=== PATIENT | female | born 1950 | race Hispanic/Latino ===

== ENCOUNTER 2023-11-09 08:47 | Emergency (ER) | payer MEDICARE ==
[~2023-11-09] VITALS: Ht 149.9 cm; Wt 65.5 kg
[2023-11-09] MEDS ORDERED: BENZONATATE200 MG PO (10:00)
[2023-11-09] MEDS ORDERED: AUGMENTIN 500-1 EACH PO (10:00)
[2023-11-09] MEDS: DEXAMETHASONE SOD PHOS INJ 4 MG/ML SDV IM ONE (10:02)
[2023-11-09] MEDS ORDERED: DEXAMETHASONE SOD PHOS INJ 4 MG/ML SDV ONE ×2 (10:03→10:07)
[2023-11-09] MEDS: CEFTRIAXONE 1 GM VIAL IM ONE (10:03)
[2023-11-09] MEDS ORDERED: CEFTRIAXONE 1 GM VIAL ONE (10:04)
[2023-11-09] MEDS ORDERED: LIDOCAINE HCL 1% LOCAL INJ 20 ML VIAL ONE (10:04)
[2023-11-09 11:08] VITALS: O2SAT 96
== END 2023-11-09 11:10 | disposition home or self-care (01) ==
LOC: FSED 08:52
DX: R50.9 Fever, unspecified (principal); J32.9 Chronic sinusitis, unspecified; K08.89 Other specified disorders of teeth and supporting structures; R73.03 Prediabetes; I10 Essential (primary) hypertension; Z11.52 Encounter for screening for COVID-19
CPT/HCPCS: 0223U; 36415; 82948; 83518; 87400; 99283; J0696; J1100; J2001